=== PATIENT | female | born 1945 | race Caucasian/White ===

== ENCOUNTER → 2016-12-04 10:45 | Outpatient (CLI) | payer MEDICARE, OTHER ==
[2016-12-04 11:57] LABS: ALBUMIN 3.7 g/dL (3.4-5.0); BILIRUBIN - INDIRECT 0.46 mg/dL (0.00-1.00); BILIRUBIN - TOTAL 0.5 mg/dL (0.2-1.3); PROTEIN - SERUM 7.5 g/dL (6.4-8.2)
[2016-12-04 11:58] LABS: BILIRUBIN - DIRECT 0.04 mg/dL (0.00-0.30)
== END | disposition home or self-care (01) ==
LOC: D.US 08:30
PROVIDERS: Internal Medicine Gastroenterology
DX: K76.0 Fatty (change of) liver, not elsewhere classified (principal)

== ENCOUNTER → 2017-07-09 10:07 | Outpatient (CLI) | payer MEDICARE, OTHER ==
[~2017-07-09 10:07] MED LIST: PEPCID40 MG; PLAVIX75 MG PO; PROZAC40 MG PO; TOPROL XL25 MG; XANAX1 MG PO
[2017-07-09 10:56] LABS: ALBUMIN 3.7 g/dL (3.4-5.0); BILIRUBIN - DIRECT 0.08 mg/dL (0.00-0.30); BILIRUBIN - INDIRECT 0.42 mg/dL (0.00-1.00); BILIRUBIN - TOTAL 0.5 mg/dL (0.2-1.3)
[2017-07-22 07:59] VITALS: BMI 24.8
== END | disposition home or self-care (01) ==
LOC: D.LAB 06-07 09:30 → D.US 06-07 09:30 → D.LAB 06-07 10:00 → D.US 10:07
PROVIDERS: Internal Medicine Gastroenterology
DX: K76.0 Fatty (change of) liver, not elsewhere classified (principal)

== ENCOUNTER 2017-07-22 07:08 | Outpatient (CLI) | payer MEDICARE, OTHER ==
[~2017-07-22] VITALS: Ht 160 cm; Wt 63.6 kg
[2017-07-22] MEDS ORDERED: PLAVIX75 MG PO (07:39)
[2017-07-22] MEDS ORDERED: PROZAC40 MG PO (07:40)
[2017-07-22] MEDS ORDERED: TOPROL XL25 MG (07:48)
[2017-07-22] MEDS ORDERED: XANAX1 MG PO (07:48)
[2017-07-22] MEDS ORDERED: PEPCID40 MG (07:49)
[2017-07-22 07:59] VITALS: BP 180/81; Ht 160 cm; Wt 63.6 kg
[2017-07-22 08:40] LABS: BASOPHILS 0 % (0-2); EOSINOPHILS 1.5 % (0-7); HEMATOCRIT 43.5 % (36.0-48.0); HEMOGLOBIN 14.2 g/dL (12-16); LYMPHOCYTES 26.6 % (15-50); MCHC 32.6 g/dL (31.0-37.0); MEAN PLATELET VOLUME 11.6 fL (7.4-10.4); MONOCYTES 10.7 % (2-11); NEUTROPHILS 61.2 % (40-80); PLATELET COUNT 161 10x3/uL (130-400); RBC 4.44 10x6/uL (4.00-5.40); RDW 12.9 % (11.5-14.5); WBC 3.9 10x3/uL (4.8-10.8)
[2017-07-22 08:49] LABS: INR 0.95 (0.85-1.17); PROTIME 12.3 SECONDS (11.6-15.0)
[2017-07-22 08:53] LABS: CALC OSMOLALITY 280 mosm/kg (275-300); CARBON DIOXIDE 26.9 mmol/L (21.0-32.0); CHLORIDE - SERUM 106 mmol/L (98-107); CREATININE - SERUM 0.7 mg/dL (0.6-1.3); GLUCOSE 88 mg/dL (74-106); POTASSIUM - SERUM 4.4 mmol/L (3.5-5.1); SODIUM 142 mmol/L (136-145); UREA NITROGEN 11 mg/dL (7-18); eGFR NON AFRICAN AMERICAN 87 mL/min (90-120)
[2017-07-22 14:23] LABS: NEUT - BF 48 %
== END 2017-07-22 12:45 | disposition home or self-care (01) ==
LOC: D.OPS 07:08 → D.CT 09:00 → D.OPS 12:45
PROVIDERS: Radiology Diagnostic Radiology
DX: K76.89 Other specified diseases of liver (principal); Z01.812 Encounter for preprocedural laboratory examination

== ENCOUNTER → 2018-01-17 09:57 | Outpatient (CLI) | payer MEDICARE, OTHER ==
[2017-07-22 07:59] VITALS: BMI 24.8
[2018-01-17 11:50] LABS: ALBUMIN 3.4 g/dL (3.4-5.0); BILIRUBIN - DIRECT 0.1 mg/dL (0.00-0.30); BILIRUBIN - INDIRECT 0.3 mg/dL (0.00-1.00); BILIRUBIN - TOTAL 0.4 mg/dL (0.2-1.3); PROTEIN - SERUM 6.9 g/dL (6.4-8.2)
== END | disposition home or self-care (01) ==
LOC: D.US 01-06 09:30 → D.LAB 01-06 09:30 → D.US 09:57
PROVIDERS: Internal Medicine Gastroenterology
DX: K76.0 Fatty (change of) liver, not elsewhere classified (principal)